=== PATIENT | male | born 1965 | race Caucasian/White ===

== ENCOUNTER 2024-01-11 01:38 | Emergency (ER) | payer BC, MEDICARE, SELFPAY ==
--- NOTE | ~2024-01-11 | XR_ITS ---
Clinical Indication: Dyspnea PA and lateral views of the chest: Comparison: 11/14/2017 Findings: The lungs are clear, without evidence of focal consolidation or pleural effusion. Cardiome diastinal silhouette is within normal limits. Bones and soft tissues are unremarkable. Impression: Clear lungs. Reviewed, dictated and finalized at location . Impression: Clear lungs.
[2024-01-11 01:39] VITALS: BP 150/91; PULSE 91; RESP 22; O2SAT 95
[2024-01-11 01:49] VITALS: BP 150/93; PULSE 92; RESP 26; TEMP 36.6; O2SAT 95
--- NOTE | 2024-01-11 01:52 | ECG_ITS ---
Test Date: 2024-01-11 01:54:37 Measurements Intervals [place] Rate: 89 P: 69 VT: 146 QRS: 48 QRSD: 103 T: 45 QT: 374 QTc: 455 Interpretive Statements SINUS RHYTHM INCOMPLETE RIGHT BUNDLE BRANCH BLOCK NONSPECIFIC ST AND T-WAVE ABNORMALITY No previous ECG available for comparison Electronically Signed On 01-11-2024 10:53:08 CDT by Gagan Castaneda M.D.
--- NOTE | 2024-01-11 02:07 | ED.SOB ---
HPI - SOB/Dyspnea General Chief Complaint: Shortness of Breath/Dyspnea <Joan Gallo PA-C - Last Filed: 01/11/24 02:21> Stated Complaint: SOB/cough <JAUN Cleary Last Filed: 01/11/24 02:21> Time Seen by Provider: 01/11/24 01:51 <JAUN Cleary Last Filed: 01/11/24 02:21> History of Present Illness HPI Narrative: 4-year-old male with a reported history of COPD and hypertension presents to emergency department for shortness of breath for 1 month. 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 He is reporting a productive cough with clear sputum and some chest tightness and congestion. The chest tightness does not radiate to his neck, arm, back or jaw, does not associate with nausea or emesis. Denies any exertional symptoms. He denies lower extremity edema, history of VTE, recent surgeries or hospitalizations. Denies fevers. <JAUN Cleary Last Filed: 01/11/24 02:21> Related Data Allergies/Adverse Reactions: Allergies Allergy/AdvReac Type Severity Reaction Status Date / Time No Known Allergies Allergy Verified 01/11/24 01:39 <JAUN Cleary Last Filed: 01/11/24 02:21> Review of Systems Review of Systems: CONSTITUTIONAL: Denies fever, chills, or sweats. EYES: Denies visual changes, redness, or discharge. ENT: Denies rhinorrhea, congestion, sore throat, or otalgia. CARDIOVASCULAR: see HPI RESPIRATORY: See HPI GASTROINTESTINAL: Denies abdominal pain, nausea, vomiting, or diarrhea. GENITOURINARY: Denies dysuria or hematuria. SKIN: Denies rash or itching. MUSCULOSKELETAL: Denies back pain, joint pain, or myalgia. NEUROLOGIC: Denies headache, numbness, or weakness. PSYCHIATRIC: Denies anxiety or depression. <JAUN Cleary Last Filed: 01/11/24 02:21> Exam Narrative: GENERAL: Well-appearing, well-nourished, and in no acute distress. HEAD: Normocephalic, atraumatic. EYES: PERRLA and EOMI. ENT: Nares clear, no rhinorrhea or epistaxis. Mucous membranes moist. NECK: Supple. CHEST: decreased lung sounds throughout all lung swenson with expiratory wheezing in the lower lung swenson. Patient satting 95% on room air, speaking in full sentences and in no respiratory distress. HEART: Regular rate and rhythm. No murmur heard. Normal peripheral pulses. ABDOMEN: Soft, nontender, nondistended, normal active bowel sounds. EXTREMITIES: Normal range of motion. No edema. Negative Homans bilaterally SKIN: Warm, dry, no rash. NEURO: No focal deficits. Alert and oriented x3 <Joan Gallo PA-C - Last Filed: 01/11/24 02:21> Course Vital Signs Vital signs: Vital Signs Pulse Rate 91 01/11/24 01:39 Respiratory Rate 22 H 01/11/24 01:39 Blood Pressure 150/91 H 01/11/24 01:39 Pulse Oximetry 95 01/11/24 01:39 Oxygen Delivery Room Air 01/11/24 01:39 Temperature 36.6 C 01/11/24 01:49 Pulse Rate 90 01/11/24 03:41 Respiratory Rate 16 01/11/24 03:38 Blood Pressure 130/73 01/11/24 03:38 Pulse Oximetry 94 01/11/24 03:38 Oxygen Delivery Room Air 01/11/24 03:37 <Joan Gallo PA-C - Last Filed: 01/11/24 02:21> Vital Signs Pulse Rate 91 01/11/24 01:39 Respiratory Rate 22 H 01/11/24 01:39 Blood Pressure 150/91 H 01/11/24 01:39 Pulse Oximetry 95 01/11/24 01:39 Oxygen Delivery Room Air 01/11/24 01:39 Temperature 36.6 C 01/11/24 01:49 Pulse Rate 90 01/11/24 03:41 Respiratory Rate 16 01/11/24 03:38 Blood Pressure 130/73 01/11/24 03:38 Pulse Oximetry 94 01/11/24 03:38 Oxygen Delivery Room Air 01/11/24 03:37 <Moisés Burton MD - Last Filed: 01/11/24 04:01> MDM - SOB/Dyspnea MDM Narrative Medical decision making narrative: 58-year-old male With history of hypertension and CO
[2024-01-11 02:17] LABS: Basophils Percent Auto 0.4 % (0.2-1.2); Eosinophils Absolute Auto 0.4 K/mm3 (0-0.3); Eosinophils Percent Auto 3.7 % (0-4.4); Hematocrit 49.3 % (42.0-52.0); Hemoglobin 16.9 g/dL (14.0-18.0); Immature Granulocyte Absolute 0.03 K/mm3 (0.00-0.031); Immature Granulocyte Percent A 0.3 % (0-0.5); Lymphocytes Absolute Auto 1.91 K/mm3 (0.9-3.2); Lymphocytes Percent Auto 20.3 % (18.3-44.2); Mean Corpuscular HGB Conc 34.3 g/dl (32-36); Mean Corpuscular Hemoglobin 30.2 pg (26-34); Mean Platelet Volume 9.3 fl (7.4-10.4); Monocytes Absolute Auto 0.8 K/mm3 (0.1-0.6); Monocytes Percent Auto 8.8 % (2.6-8.5); Neutrophils Absolute Auto 6.2 K/mm3 (1.3-6.7); Neutrophils Percent Auto 66.5 % (45.5-73.1); Platelet Count Result 278 k/mm3 (150-375); Red Cell Distribution Width 13.7 % (11.5-14.5); White Blood Count 9.4 K/mm3 (4.5-10.0)
[2024-01-11] MEDS: IPRATROPIUM 0.5 MG/ALBUTEROL SULFATE 2.5 MG AMPUL.NEB 3 ML INHALATION ×3 (02:20→02:21)
[2024-01-11 02:21] VITALS: PULSE 72; RESP 18
[2024-01-11] MEDS: methylPREDNISolone SOD SUCC 125 MG VIAL IV PUSH (02:26)
[2024-01-11] MEDS: MAGNESIUM SULF 2 GM/WATER 50ML 2 GM/50 ML BAG IVPB (02:26)
[2024-01-11 02:28] LABS: INR 1.1
[2024-01-11 02:29] LABS: Partial Thromboplastin Time 32.3 Seconds (22.3-36.8)
[2024-01-11 02:32] LABS: Alanine Aminotransferase 30 U/L (6-50); Alkaline Phosphatase 68 U/L (38-126); Anion Gap 5 mmol/L (4-12); Aspartate Amino Transferase 27 U/L (17-59); Bilirubin,Total 0.7 mg/dL (0.2-1.3); Blood Urea Nitrogen 16 mg/dL (9-20); Calcium 9.3 mg/dL (8.4-10.2); Carbon Dioxide 24 mmol/L (22-30); Chloride 109 mmol/L (98-107); Estimated CRCL calculation 85 ml/min; Estimated Glomerular Filt Rate > 60; Glucose 111 mg/dL (65-110); Potassium 3.9 mmol/L (3.4-5.0); Sodium 138 mmol/L (137-145)
[2024-01-11 02:42] LABS: NT Pro B Type Natriuretic Pept 96 pg/mL (19.9-100); Troponin I < 0.012 ng/mL (0.000-0.034)
[2024-01-11 03:37] VITALS: O2SAT 96
[2024-01-11 03:38] VITALS: BP 130/73; PULSE 84; RESP 16; O2SAT 94
[2024-01-11 03:41] VITALS: PULSE 90
[2024-01-11] MEDS: AZITHROMYCIN 250 MG TABLET 500 MG PO (04:10)
[2024-01-11] MEDS: cefTRIAXone 2 GM/NS 100 ML 2 GM/100 ML BAG IVPB (04:11)
== END 2024-01-11 04:52 | disposition home or self-care (01) ==
PROVIDERS: Physician Assistant; Emergency Provider Emergency Medicine
DX: J20.9 Acute bronchitis, unspecified (principal); J44.0 Chronic obstructive pulmonary disease with (acute) lower respiratory infection; J18.9 Pneumonia, unspecified organism; I10 Essential (primary) hypertension; I45.10 Unspecified right bundle-branch block; R94.31 Abnormal electrocardiogram [ECG] [EKG]
CPT/HCPCS: 36415; 71046; 80053; 83735; 83880; 84484; 85025; 85610; 85730; 93005; 94640; 96365; 96367; 96375; 99284; A9270; J0696; J2919; J3475